=== PATIENT | female | born 1940 | race Caucasian/White ===

== ENCOUNTER → 2016-12-08 | Day surgery (SDC) | payer MEDICARE, OTHER ==
[~2016-12-08] VITALS: Ht 172.7 cm; Wt 70.0 kg
[~2016-12-08] MED LIST: 0.9% Sodium Chloride 1,000 ML IV SCH; ACET325T51 PO; ADVAIR IH; CIPR-232 PO; DIPH25CA6 PO; HYDR25TA4 PO; LEVO25TA5 PO; MUPI1OIN5 NASAL; ROPI0.252 PO; Sodium Chloride LOK Flush 10 mL Syringe IV PRN; TRIA10.8 NS; fentaNYL-PF 50 mCg/mL 2 mL Inj IVPUSH PRN
[2016-12-08 12:05] VITALS: BP 160/96; PULSE 69; RESP 16; O2SAT 95
[2016-12-08 12:54] VITALS: BP 135/76; PULSE 65; RESP 16; O2SAT 97
[2016-12-08 13:04] VITALS: BP 140/86; PULSE 64; RESP 16; O2SAT 97
[2016-12-08 13:14] VITALS: BP 136/74; PULSE 58; RESP 16; O2SAT 98
--- NOTE | 2016-12-08 13:27 | ENDO ---
[address] [address] ENDOSCOPY PROCEDURE PATIENT: SONAL SNIDER : 1940 MR#: [id number] ADMIT: 12/08/2016 JOB ID: [id number] OPERATION: Esophagogastroduodenoscopy (EGD) with biopsy. PREOPERATIVE DIAGNOSIS(ES): Dysphagia. POSTOPERATIVE DIAGNOSIS(ES): Mild nonerosive gastritis. ANESTHESIA: Fentanyl 100 mcg, Versed 4 mg IV administered. COMPLICATIONS: None. BLOOD LOSS: Minimal. DESCRIPTION OF PROCEDURE: After the risks and benefits were explained to the patient, informed consent was obtained. After anesthesia was administered, the upper endoscope was inserted into mouth, intubating through the esophagus, stomach, second portion duodenum, and the mucosa examined. After the procedure was done, the scope was withdrawn and the procedure terminated. FINDINGS: Upon inspection of the esophagus, first an adult upper endoscope was attempted, trying to intubate the esophagus, which could not proceed. A pediatric upper endoscope was then used and was able to pass through the upper esophageal sphincter without difficulty. Z-line located 40 cm from incisors. No masses, ulcers, or lesions seen in the esophagus. Upon entering the stomach, there was mild nonerosive gastritis that was seen. No masses or ulcers were seen. Retroflexion was normal. Duodenal bulb, first and second portion normal. Biopsies taken in the antrum, body, mid and distal esophagus. IMPRESSION: Mild nonerosive gastritis status post biopsy. RECOMMENDATION: Await pathology results. Follow up in GI Clinic as needed.
--- NOTE | 2016-12-12 16:52 | PATH ---
SURGICAL PATHOLOGY Attending Physician:Tate Almazan MD CASE STATUS: Signed Out PATIENT NAME: SONAL SNIDER PID: [id number] : 1940 DATE COLLECTED:12/08/2016 20:37 SPECIMEN: 1: Stomach, Antrum, Biopsy 2: Gastric, Biopsy 3: Esophagus, Biopsy 4: Esophagus, Biopsy CLINICAL HISTORY: 1). GASTRIC ANTRUM BIOPSY AND RULE OUT H PYLORI 2). GASTRIC BODY BIOPSY 3). DISTAL ESOPHAGUS BIOPSY 4). MID ESOPHAGUS BIOPSY FINAL DIAGNOSIS: 1. & 2.GASTRIC ANTRUM, GASTRIC BODY, BIOPSIES: GASTRIC ANTRAL AND BODY MUCOSA WITH NO DIAGNOSTIC ABNORMALITY. Negative for Helicobacter organisms. Negative for intestinal metaplasia. No evidence of dysplasia or malignancy. 3.DISTAL ESOPHAGUS, BIOPSY: COLUMNAR MUCOSA WITH NO DIAGNOSTIC ABNORMALITY. Negative for intestinal metaplasia. No evidence of dysplasia or malignancy. Squamous mucosa not present for evaluation. 4.MID ESOPHAGUS, BIOPSY: SQUAMOUS EPITHELIUM WITH NO DIAGNOSTIC ABNORMALITY. Intraepithelial eosinophils are not increased. Negative for dysplasia and malignancy. ICD10 R10.13 GROSS DESCRIPTION: The specimen is received in four formalin filled containers labeled with the patient's name. 1). The specimen is labeled "gastric antrum" are 2 fragments of gomez, soft tissue which range in size from less than 0.1 CM to 0.1 x 0.1 x 0.1 CM. All fragments are totally submitted in cassette 1A. 2). The specimen is labeled "gastric body" and consists of a 0.2 x 0.2 x 0.1 CM portion of tissue which is entirely submitted in cassette 2A. 3). The specimen is labeled "distal esophagus" and consists of a 0.2 x 0.2 x 0.2 CM portion of tissue which is entirely submitted in cassette 3A. 4). The specimen is labeled "mid esophagus" and consists of 2 tiny portions of tissue which aggregate to 0.1 x 0.1 x 0.1 CM. The specimen is entirely submitted in cassette 4A. 12/08/2016DC MICRO DESCRIPTION: See diagnosis. ICD-9 CODES: CPT CODES: 1: 42105 2: 29294 3: 91185 4: 13735 Electronically Signed Out Juan Gómez MD, Ph.D. [facility] [address] [place] [address] Division, [place] [address] Technical component performed at [facility], [address], [place], [address]
== END | disposition home or self-care (01) ==
LOC: END 00:40
PROVIDERS: ATTEND Internal Medicine Gastroenterology
DX: R13.13 Dysphagia, pharyngeal phase (principal); K29.50 Unspecified chronic gastritis without bleeding; G89.29 Other chronic pain; M54.5 Low back pain; E78.5 Hyperlipidemia, unspecified; I10 Essential (primary) hypertension; E03.9 Hypothyroidism, unspecified; G62.9 Polyneuropathy, unspecified; Z79.899 Other long term (current) drug therapy